=== PATIENT | male | born 1970 | race Caucasian/White ===

== ENCOUNTER 2017-04-15 12:34 | Emergency (ER) | payer BC ==
--- NOTE | 2017-04-16 13:58 | ER ---
ADMIT: 04/15/2017 RM/LOC: ER [facility] MR#: [id number] [facility] [address] [place], [place] [id number] DESTIN REILLY [address] [place] [id number] Emergency Room Report SEX: M AGE: 46 : 1970 CORRECTED: 04/16/2017 0641 DJS DATE: 04/15/2017 CHIEF COMPLAINT: Bilateral eye redness, sore throat. HISTORY OF PRESENT ILLNESS: A 46-year-old male presents to the ER with 7 days duration of cold symptoms. Primarily presents to the ER today for clearance to return to work. States he was working last Wednesday when he was injecting a piece of meat at [employer] and got some of the fluid into his eyes. He awoke the next morning with bilateral eye redness, discharge, and pain. States he has been dealing with this for the past week, however, went to work today. States he needed note for clearance. States his cold symptoms are somewhat improving. Admits to sore throat, runny nose, cough, congestion. As far as his eyes are concerned states the redness has been fairly stable, has not been doing anything from this point. COURSE IN EMERGENCY ROOM: The patient was seen and examined. GENERAL: Afebrile and nontoxic. No acute distress. HEENT: Head is normocephalic and atraumatic. Eyes have bilateral conjunctival injection and erythema with some light mattering on the eyelashes. No pain with extraocular muscle movements testing. No lymphadenopathy. Eyes are equal and reactive. Pharynx non erythematous. No airway problems. Nose, no obvious rhinorrhea or purulent drainage. Ears are nonerythematous. TMs are pearly white bilaterally. LUNGS: No respiratory distress. No wheezes, rhonchi, or rales. HEART: Regular. SKIN: No rash. IMPRESSION: Bilateral conjunctivitis, atopic versus bacterial. DISPOSITION: Patient was discharged, start Polytrim 1 drop each eye 4 times daily for 7 days. He is to use Tylenol and ibuprofen as needed for pain and fever. I did complete his return to work release stating that he is okay to return to work tomorrow given that he is being started on antibiotic eye drops today. Follow up with his primary care provider if he is not improving. Questions sought and answered to best of my ability and the patient's satisfaction. Discharged in stable condition. GABE Phillip / Nba Chaney MD / zane JOB #: [id number] CC: Nba Chaney MD, Attending Physician Misael Devries MD, Family Physician CORRECTED: 04/16/2017 0641 HARMEETS
== END 2017-04-15 13:45 | disposition home or self-care (01) ==
LOC: ER 12:34
DX: H10.9 Unspecified conjunctivitis (principal)